=== PATIENT | female | born 1990 | race Caucasian/White ===

== ENCOUNTER 2017-04-24 14:23 | Day surgery (SDC) | payer MEDICAID ==
[2017-04-24] MEDS ORDERED: LIDOCAINE 1% 2 ML INJ ONE ×2 (14:36)
[2017-04-24] MEDS ORDERED: LIDOCAINE 1% 2 ML INJ ID PRN ×2 (14:41)
[2017-04-24] MEDS ORDERED: LR 1,000 ML IV ONE ×2 (14:41)
[2017-04-24 14:58] VITALS: BP 115/62; PULSE 73; RESP 16; TEMP 98.1; O2SAT 96
[2017-04-24] MEDS ORDERED: LIDOCAINE 1% 300 MG/30 ML SDV ONE ×2 (15:14)
[2017-04-24] MEDS ORDERED: BUPIVACAINE 0.5% 30 ML SDV ONE ×2 (15:15)
[2017-04-24] MEDS ORDERED: MIDAZOLAM 2 MG/2 ML VIAL IVP ONE ×2 (15:35)
--- NOTE | 2017-04-24 15:35 | PDANEPAE ---
ANE History of Present Illness ventral hernia and external hemorrhoidectomy ANE Past Medical History - Cardiovascular History Hx Hypertension: No Hx Arrhythmias: No Hx Chest Pain: No Hx Coronary Artery / Peripheral Vascular Disease: No Hx CHF / Valvular Disease: No Hx Palpitations: No - Pulmonary History Hx COPD: No Hx Asthma/Reactive Airway Disease: No Hx Recent Upper Respiratory Infection: No Hx Oxygen in Use at Home: No Hx Sleep Apnea: No Sleep Apnea Screening Result - Last Documented: Negative - Neurologic History Hx Cerebrovascular Accident: No Hx Seizures: No Hx Dementia: No - Endocrine History Hx Diabetes: No - Renal History Hx Renal Disorders: No - Liver History Hx Hepatic Disorders: No - Neurological & Psychiatric Hx Hx Neurological and Psychiatric Disorders: No - Cancer History Hx Cancer: No - Congenital Disorder History Hx Congenital Disorders: No - GI History Hx Gastrointestinal Disorders: No - Other Health History Other Health History: NONE - Chronic Pain History Chronic Pain: No - Surgical History Prior Surgeries: NONE ANE Review of Systems Review of systems is: negative Review of Systems: - Exercise capacity METS (RN): 5 METS ANE Patient History - Allergies Allergies/Adverse Reactions: No Known Allergies Allergy (Unverified 05/30/15 16:18) - Home Medications Home medications: home medication list seen and reviewed Home Medications: NK [No Known Home Meds] 05/30/15 [Last Taken Unknown] - NPO status NPO Status: no food or drink >8 hours NPO Since - Liquids (Date): 04/23/17 NPO Since - Liquids (Time): 23:00 NPO Since - Solids (Date): 04/23/17 NPO Since - Solids (Time): 22:00 - Anes Hx Anes Hx: no prior problems - Smoking Hx Smoking Status: Never smoked - Family Anes Hx Family Anes Hx: none Family Hx Anesthesia Complications: NONE ANE Labs/Vital Signs - Vital Signs Blood Pressure: 115/62 Heart Rate: 73 Respiratory Rate: 16 O2 Sat (%): 96 Height: 167.64 cm Weight: 50.802 kg ANE Physical Exam - Airway Neck exam: FROM Mallampati Score: Class 1 Mouth exam: normal dental/mouth exam - Pulmonary Pulmonary: no respiratory distress - Cardiovascular Cardiovascular: regular rate and rhythym - ASA Status ASA Status: I ANE Anesthesia Plan Anesthesia Plan: general endotracheal anesthesia
== END 2017-04-24 16:45 | disposition home or self-care (01) ==
LOC: FSGY 14:23
PROVIDERS: ATTEND Surgery
DX: K43.9 Ventral hernia without obstruction or gangrene (principal); K64.9 Unspecified hemorrhoids; B07.9 Viral wart, unspecified; Z53.20 Procedure and treatment not carried out because of patient's decision for unspecified reasons

== ENCOUNTER 2017-06-27 21:55 | Emergency (ER) | payer MEDICAID ==
[2017-06-27 22:11] VITALS: BP 105/57; PULSE 74; RESP 20; TEMP 98.2; O2SAT 99
--- NOTE | 2017-06-27 22:12 | EDPHY ---
H & P Stated Complaint: Concerned for MRSA, "bubble/pimple on nose' Time Seen by Provider: 06/27/17 22:11 HPI/ROS: HPI: This is a 27-year-old female who presents with Chief Complaint: Concerned for MRSA, "bubble/pimple on nose' Location: Right nostril Quality: Pimple Duration: 1 day Signs and Symptoms: No fever, no drainage, + mild erythema, + pain Timing: Gradual Severity: Moderate Context: Patient is concerned that she has MR SA infection on her right near as her mother has MRSA. She noticed a pimple on her right nostril yesterday that has gradually worsened. She has not tried anything for the symptoms or any [id number] acne medications. She wears large amounts of makeup. LMP 2-3 weeks ago. Modifying Factors: None Comment: ROS: see HPI Constitutional: No fever, no chills, no weight loss Eyes: No blurred vision Respiratory: No shortness of breath, no cough Cardiovascular: No chest pain Gastrointestinal: No nausea, no vomiting, no diarrhea Genitourinary: No dysuria Extremities: No myalgias Neurologic: No weakness, no numbness Skin: No rashes Hematologic: No bruising, no bleeding MEDICAL/SURGICAL/SOCIAL HISTORY: Medical history: Generally healthy. Does not take any regular medications. Surgical history: Denies Social history: Employed. CONSTITUTIONAL: Adult white female who appears well, awake and alert, no obvious distress HEENT: Atraumatic and normocephalic, PERRL, EOMI. Tympanic membranes clear. Oropharynx clear, no exudate and moist pink mucosa. Nares patent; no septal hematoma. Right outer edge of near heart in 1 mm close comedone noted. Airway patent. No lymphadenopathy. No meningismus. Cardiovascular: Normal S1/S2, regular rate, regular rhythm, without murmur rub or gallop. PULMONARY/CHEST: Symmetrical and nontender. Clear to auscultation bilaterally. Good air movement. No accessory muscle usage. ABDOMEN: Soft, nondistended, nontender, no rebound, no guarding, no peritoneal signs, no masses or organomegaly. No CVAT. EXTREMITIES: 2/2 pulses, strength 5/5, no deformities, no clubbing, no cyanosis or edema. NEUROLOGICAL: no focal neuro deficits. GCS 15. SKIN: Warm and dry, no erythema. no rash. Good capillary refill. Source: Patient Exam Limitations: No limitations - Personal History LMP (Females 10-55): 15-21 Days Ago Current Tetanus Diphtheria and Acellular Pertussis (TDAP): Yes - Medical/Surgical History Hx Asthma: No Hx Chronic Respiratory Disease: No Hx Diabetes: No Hx Cardiac Disease: No Hx Renal Disease: No Hx Cirrhosis: No Hx Alcoholism: No Hx HIV/AIDS: No Hx Splenectomy or Spleen Trauma: No Other PMH: Denies - Social History Smoking Status: Never smoked Constitutional: Initial Vital Signs Temperature (C) 36.8 C 06/27/17 22:08 Heart Rate 74 06/27/17 22:08 Respiratory Rate 20 06/27/17 22:08 Blood Pressure 105/57 L 06/27/17 22:08 O2 Sat (%) 99 06/27/17 22:08 O2 Delivery Mode Room Air Allergies/Adverse Reactions: No Known Allergies Allergy (Verified 06/27/17 22:08) Home Medications: Medication Instructions Recorded Clindamycin 150 mg PO Q8 7 Days #21 cap 06/27/17 Mupirocin 2% [Bactroban 2% Nasal 1 malachi NASAL BID 5 Days tube 06/27/17 (RX)] Medical Decision Making ED Course/Re-evaluation: no signs of Rogers Hemphill syndrome/sinusitis/facial cellulitis/abscess No fluctuance to I and D Given clindamycin orally as well as script for Bactroban in her nares This patient was seen under the supervision of my secondary supervising physician. I evaluated care for this patient independently. Discussed this patient with who did not see the patient. Patient's presentation, labs/imaging, treatment and plan of care were discussed with secondary supervising physician. Differential Diagnosis: Differential diagnosis includes but is not limited to ingrown hair, pustular comedone, MRSA infection. Departure - Departure Disposition: Home, Routine, Self-Care Clinical Impression: Exposure to MRSA, Closed comedone Condition: Good Instructions: Antiacne Antibacterial (On the skin), MRSA (Methicillin- Resistant Staphylococcus Aureus) (ED) Additional Instructions: Wash the area with mild soap and water twice daily. Take clindamycin x [address] Bactroban in your nares twice a day x5 days. Referrals: Lucy Gage MD [Primary Care Provider] - As per Instructions Prescriptions: Clindamycin 150 mg PO Q8 7 Days #21 cap Mupirocin 2% [Bactroban 2% Nasal (RX)] 1 malachi NASAL BID 5 Days tube
[2017-06-27] MEDS ORDERED: CLINDAMYCIN 150 MG CAP PO ONE (22:25)
== END 2017-06-27 22:44 | disposition home or self-care (01) ==
DX: Z22.322 Carrier or suspected carrier of Methicillin resistant Staphylococcus aureus (principal); L70.0 Acne vulgaris

== ENCOUNTER 2017-08-14 07:13 | Day surgery (SDC) | payer MEDICAID ==
[~2017-08-14 07:13] MED LIST: cefOXitin SODIUM 2 GM in STERILE WATER INJ 21 ML IV ONE
[2017-08-14 08:06] VITALS: PULSE 71
[2017-08-14] MEDS ORDERED: LR 1,000 ML IV ONE (08:11)
[2017-08-14] MEDS ORDERED: BUPIVACAINE 0.5% 10 ML SDV ONE (08:35)
[2017-08-14] MEDS ORDERED: BUPIVACAINE/EPI 0.5% 30 ML SDV ONE (08:35)
--- NOTE | 2017-08-14 08:42 | PDHPUP ---
History & Physical Update H&P update statement: This history and physical update is based on an assessment of the patient which was completed after admission or registration (within 24 hours), but prior to the surgery/procedure.
[2017-08-14] MEDS ORDERED: MIDAZOLAM 2 MG/2 ML VIAL IVP ONE (08:56)
--- NOTE | 2017-08-14 08:59 | PDANEPAE ---
ANE History of Present Illness ventral hernia ANE Past Medical History - Cardiovascular History Hx Hypertension: No Hx Arrhythmias: No Hx Chest Pain: No Hx Coronary Artery / Peripheral Vascular Disease: No Hx CHF / Valvular Disease: No Hx Palpitations: No - Pulmonary History Hx COPD: No Hx Asthma/Reactive Airway Disease: No Hx Recent Upper Respiratory Infection: No Hx Oxygen in Use at Home: No Hx Sleep Apnea: No - Neurologic History Hx Cerebrovascular Accident: No Hx Seizures: No Hx Dementia: No - Endocrine History Hx Diabetes: No - Renal History Hx Renal Disorders: No - Liver History Hx Hepatic Disorders: No - Neurological & Psychiatric Hx Hx Neurological and Psychiatric Disorders: No - Cancer History Hx Cancer: No - Congenital Disorder History Hx Congenital Disorders: No - GI History Hx Gastrointestinal Disorders: No - Other Health History Other Health History: NONE - Chronic Pain History Chronic Pain: No - Surgical History Prior Surgeries: NONE ANE Review of Systems Review of Systems: - Exercise capacity METS (RN): 5 METS ANE Patient History - Allergies Allergies/Adverse Reactions: No Known Allergies Allergy (Verified 08/14/17 07:45) - Home Medications Home Medications: NK [No Known Home Meds] 08/14/17 [Last Taken Unknown] - NPO status NPO Since - Liquids (Date): 08/13/17 NPO Since - Liquids (Time): 23:00 NPO Since - Solids (Date): 08/13/17 NPO Since - Solids (Time): 23:30 - Smoking Hx Smoking Status: Former smoker - Family Anes Hx Family Hx Anesthesia Complications: NONE ANE Labs/Vital Signs - Vital Signs Blood Pressure: 108/60 Heart Rate: 71 Respiratory Rate: 16 O2 Sat (%): 96 Height: 167.64 cm Weight: 49.442 kg ANE Physical Exam - Airway Neck exam: FROM Mallampati Score: Class 1 Mouth exam: normal dental/mouth exam - Pulmonary Pulmonary: no respiratory distress - Cardiovascular Cardiovascular: regular rate and rhythym - ASA Status ASA Status: I ANE Anesthesia Plan Anesthesia Plan: general endotracheal anesthesia
[2017-08-14] MEDS ORDERED: PROPOFOL 200 MG/20 ML VIAL ONE (09:01)
[2017-08-14] MEDS ORDERED: ROCURONIUM 50 MG/5 ML VIAL ONE (09:01)
[2017-08-14] MEDS ORDERED: fentaNYL 100 MCG/2 ML INJ ONE ×2 (09:01)
[2017-08-14] MEDS ORDERED: OXYCODONE/APAP 5/325 TAB PO PRN (09:40)
[2017-08-14] MEDS ORDERED: ONDANSETRON 4 MG/2 ML VIAL IVP PRN (09:40)
[2017-08-14] MEDS ORDERED: fentaNYL 100 MCG/2 ML INJ IVP PRN (09:40)
[2017-08-14] MEDS ORDERED: PROMETHAZINE HCL 25 MG/ML INJ IVP PRN (09:40)
[2017-08-14] MEDS ORDERED: HYDROmorphONE/DILAUDID 1 MG/ML INJ IVP PRN (09:40)
[2017-08-14] MEDS ORDERED: NALOXONE HCL 0.4 MG/ML INJ IVP PRN (09:40)
--- NOTE | 2017-08-14 10:15 | POSTOPPROG ---
Post Op Note Date of Operation: 08/14/17 Surgeon: Ephraim Carrero Rap Artist: Johnny Anesthesiologist: Wu Anesthesia: GET(General Endotracheal) Pre-op Diagnosis: Epigastric hernia, anal tag Post-op Diagnosis: same Indication: pain Procedure: Epigastric hernia repair, anal tag excision Inf/Abcess present in the surg proc area at time of surgery?: No EBL: Minimal Specimen(s): Hernia sac
[2017-08-14] MEDS ORDERED: POLYETHYLENE GLYCOL 3350 17 GM PKT PO ONE (10:18)
--- NOTE | 2017-08-14 10:20 | POSTANESTH ---
Post Anesthetic Evaluation Cardiovascular Status: Normal, Stable Respiratory Status: Normal, Stable Level of Consciousness/Mental Status: Can Participate in Eval Pain Control: Adequate, Prn Tx Ordered Nausea/Vomiting Control: Adequate, Prn Tx Ordered Complications Possibly Related to Anesthesia: None Noted
[2017-08-14 10:45] VITALS: TEMP 97.5
[2017-08-14 10:46] VITALS: O2SAT 100
[2017-08-14 12:16] VITALS: BP 113/87; RESP 12
--- NOTE | 2017-08-16 12:52 | GOP ---
[f rep st] OPERATIVE REPORT DATE OF OPERATION: 08/14/2017 SURGEON: Ephraim Carrero MD ASSOCIATE PROFESSOR OF CHEMISTRY: Saadia Turner NP. ANESTHESIOLOGIST: Eb Washburn MD. PREOPERATIVE DIAGNOSIS: 1. Upper abdominal midline ventral hernia. 2. External hemorrhoid tags. POSTOPERATIVE DIAGNOSIS: 1. Upper abdominal midline ventral hernia. 2. External hemorrhoid tags. PROCEDURE PERFORMED: 1. An open ventral hernia repair. 2. External hemorrhoidectomy. FINDINGS: Patient was found to have a 1.5 cm ventral hernia defect in the upper midline, containing preperitoneal fat and omentum. On her bottom, she had 2 external hemorrhoid fleshy tags which were e asily removed. DESCRIPTION OF PROCEDURE: The patient was taken to the operating room where she received satisfactor y general endotracheal anesthesia by Dr. Washburn, placed in supine position, prepped and draped in usu al sterile fashion. A vertical incision was made over the palpable abnormality. Dissection was vazquez ied down through subcutaneous tissue and the hernia sac was dissected free from surrounding subcutane ous tissue and back down to the fascial level where it was opened. Its contents were reduced. Exces s sac was excised. The hernia defect was then repaired with interrupted 0 Surgilon mattress sutures in a 2 layer [id number] fashion. The wound was infiltrated with 0.5% Marcaine. Subcu was close d with 3-0 Vicryl and skin with a 4-0 Monocryl subcuticular stitch. She tolerated the procedure well . There were no complications. Attention was then turned to the anal area. The patient was placed in lithotomy and re-prepped and d raped in the usual sterile fashion. Anoscopy was performed, but there were no significant internal h emorrhoid problems. Two external hemorrhoids were grasped with Allis clamps and completely excised. The bases were cauterized. Wounds were infiltrated with 0.5% Marcaine. No sutures were required. The specimen was sent to Pathology. Wounds were dressed. She tolerated the procedure well. She was taken to the recovery room in good condition. There were no complications. /[id number]/MODL
== END 2017-08-14 12:15 | disposition home or self-care (01) ==
LOC: FSGY 07:13
PROVIDERS: ATTEND Surgery
PROC: 0WQF0ZZ Repair Abdominal Wall, Open Approach (ICD-10-PCS; principal; 2017-08-14 08:30)
PROC: 0HB9XZZ Excision of Perineum Skin, External Approach (ICD-10-PCS; principal; 2017-08-14 08:30)
DX: K43.9 Ventral hernia without obstruction or gangrene (principal); K64.4 Residual hemorrhoidal skin tags
CPT/HCPCS: J0694; J2250; J2704; J3010